=== PATIENT | male | born 1950 | race Caucasian/White ===

== ENCOUNTER 2020-09-06 11:56 | Inpatient (IN) | payer OTHER ==
[~2020-09-06] VITALS: Ht 167.6 cm; Wt 77.1 kg
[2020-09-06] MEDS ORDERED: LIPITOR20 MG PO (13:02)
[2020-09-06] MEDS ORDERED: COZAAR50 MG PO (13:02)
[2020-09-06] MEDS ORDERED: FENOFIBRATE160 MG PO (13:02)
[2020-09-06] MEDS ORDERED: GLIMEPIRIDE4 M1 PO (13:02)
[2020-09-06] MEDS ORDERED: LEVOTHYROXINE25 MCG PO (13:03)
== END 2020-09-16 09:08 | disposition home or self-care (01) | DRG 330 ==
LOC: O/R 11:56 → SURG 09-13 05:15 → O/R 09-13 07:00 → SURG 09-13 13:08
PROVIDERS: ADMIT Colon & Rectal Surgery; ATTEND Colon & Rectal Surgery
PROC: 0TQB3ZZ Repair Bladder, Percutaneous Approach (ICD-10-PCS; 2020-09-13)
PROC: 0DUU47Z Supplement Omentum with Autologous Tissue Substitute, Percutaneous Endoscopic Approach (ICD-10-PCS; 2020-09-13)
PROC: 0DBN4ZZ Excision of Sigmoid Colon, Percutaneous Endoscopic Approach (ICD-10-PCS; principal; 2020-09-13 07:00)
DX: K57.21 Diverticulitis of large intestine with perforation and abscess with bleeding (principal); N32.1 Vesicointestinal fistula; I10 Essential (primary) hypertension; E13.9 Other specified diabetes mellitus without complications